=== PATIENT | female | born 1960 | race Caucasian/White ===

== ENCOUNTER → 2017-09-22 | Outpatient (CLI) | payer BC ==
[~2017-09-22] MED LIST: CARVEDILOL12.5 MG PO; HYDROCODON-ACE1 EAC7 PO; METAMUCIL0.52 GM PO; ONE DAILY WOME1 EACH PO; TYLENOL WITH C1 EACH PO; VERAPAMIL ER200 MG PO
== END | disposition home or self-care (01) ==
LOC: CDC 11:00
DX: Z01.810 Encounter for preprocedural cardiovascular examination (principal); G56.01 Carpal tunnel syndrome, right upper limb; M65.311 Trigger thumb, right thumb
CPT/HCPCS: 93000

== ENCOUNTER 2017-11-15 22:44 | Inpatient (IN) | payer BC ==
[~2017-11-15] VITALS: Ht 167.6 cm; Wt 145.1 kg
[~2017-11-15 22:44] MED LIST changes: +CALCIUM CALTRATE PO; +FISH OIL 500 M1 EAC2 PO; +VITAMIN B-122500 MCG SL
[2017-11-16 12:59] VITALS: BP 179/86
[2017-11-16 19:44] LABS: HEMATOCRIT 42.3 % (36.0-46.0); HEMOGLOBIN 14.1 G/DL (11.9-15.5); MCH 31.1 PG (29.0-34.0); MCHC 33.3 G/DL (30.0-36.0); MCV 93.4 FL (83-99); PLATELET COUNT 286 K/uL (156-360); RBC DIS.WIDTH-CV 13.1 % (11.8-14.6); RBC DIS.WIDTH-SD 44.6 % (39-53); RED BLOOD COUNT 4.53 M/uL (3.80-5.20); WHITE BLOOD COUNT 13.5 K/uL (4.1-10.2)
[2017-11-16 19:51] VITALS: BP 187/95
[2017-11-16 20:08] LABS: CHLORIDE 106 MEQ/L (99-109); CREATININE 0.5 MG/DL (0.6-1.3); GFR ESTIMATE (CALCULATED) > 59 mL/min/; GLUCOSE 149 mg/dL (70-99); POTASSIUM 3.9 MEQ/L (3.7-5.4); SODIUM 138 MEQ/L (136-147); UREA NITROGEN (BUN) 10 mg/dL (9-23)
[2017-11-16 23:35] VITALS: BP 176/92
[2017-11-17 03:30] VITALS: BP 162/90
[2017-11-17 06:54] LABS: HEMATOCRIT 39.7 % (36.0-46.0); HEMOGLOBIN 13.4 G/DL (11.9-15.5); MCH 31.2 PG (29.0-34.0); MCHC 33.8 G/DL (30.0-36.0); MCV 92.3 FL (83-99); PLATELET COUNT 278 K/uL (156-360); RBC DIS.WIDTH-CV 12.8 % (11.8-14.6); RBC DIS.WIDTH-SD 43.2 % (39-53); WHITE BLOOD COUNT 10.9 K/uL (4.1-10.2)
[2017-11-17 07:20] LABS: CHLORIDE 102 MEQ/L (99-109); CREATININE 0.5 MG/DL (0.6-1.3); GFR ESTIMATE (CALCULATED) > 59 mL/min/; GLUCOSE 125 mg/dL (70-99); POTASSIUM 4.3 MEQ/L (3.7-5.4); SODIUM 135 MEQ/L (136-147); UREA NITROGEN (BUN) 9 mg/dL (9-23)
[2017-11-17 07:50] VITALS: BP 164/71
[2017-11-17 11:38] VITALS: BP 123/66
[2017-11-17] MEDS ORDERED: LOVENOX40 MG/0.4 SC (12:23)
[2017-11-17 15:30] VITALS: BP 157/70
[2017-11-17 19:31] VITALS: BP 152/67
[2017-11-17 23:37] VITALS: BP 148/68
[2017-11-18 03:59] VITALS: BP 152/64
[2017-11-18 06:47] LABS: HEMATOCRIT 35.8 % (36.0-46.0); HEMOGLOBIN 12.1 G/DL (11.9-15.5); MCH 31.3 PG (29.0-34.0); MCHC 33.8 G/DL (30.0-36.0); MCV 92.5 FL (83-99); PLATELET COUNT 268 K/uL (156-360); RBC DIS.WIDTH-CV 13.2 % (11.8-14.6); RED BLOOD COUNT 3.87 M/uL (3.80-5.20)
[2017-11-18 07:07] LABS: CHLORIDE 102 MEQ/L (99-109); CREATININE 0.7 MG/DL (0.6-1.3); GFR ESTIMATE (CALCULATED) > 59 mL/min/; GLUCOSE 107 mg/dL (70-99); POTASSIUM 3.7 MEQ/L (3.7-5.4); SODIUM 136 MEQ/L (136-147); UREA NITROGEN (BUN) 16 mg/dL (9-23)
[2017-11-18 08:15] VITALS: BP 142/65
[2017-11-18 09:10] VITALS: BP 137/68
[2017-11-18] MEDS ORDERED: LOVENOX40 MG/0.4 SC (10:18)
[2017-11-18] MEDS ORDERED: ADULT ASPIRIN R81 MG PO (10:48)
== END 2017-11-18 11:10 | disposition home or self-care (01) | DRG 740 ==
LOC: ENRESERV 22:44 → 2SOUTH 11-16 11:36 → 2EASTP 11-16 12:06 → 2SOUTH 11-16 14:59 → 2EASTP 11-16 19:14
PROVIDERS: Obstetrics & Gynecology Gynecologic Oncology
DX: C54.1 Malignant neoplasm of endometrium (principal); I10 Essential (primary) hypertension; E66.01 Morbid (severe) obesity due to excess calories; Z68.43 Body mass index [BMI] 50.0-59.9, adult; Z98.84 Bariatric surgery status
CPT/HCPCS: 36415; 80048; 85027; 86850; 86900; 86901; 86920; 88305; 88309; 88341 TC; 88342 TC; J0131; J0330; J0360; J0690; J1100; J1170; J1650; J1885; J2405; J2710; J2765; J3010; J7120; J7643; Q0175